=== PATIENT | female | born 1965 | race Caucasian/White ===

== ENCOUNTER 2020-08-15 00:47 | Day surgery (SDC) | payer OTHER, SELFPAY ==
[2020-08-03 09:54] VITALS: BMI 21.4
[2020-08-15] MEDS: LACTATED RINGERS 1,000 ML 150 ML IV CONT (06:18)
[2020-08-15 06:25] VITALS: BP 130/87; PULSE 72; RESP 18; TEMP 36.1; O2SAT 100
--- NOTE | 2020-08-15 07:10 | WPDANESEPPF ---
Anes - Initial Pre Proc Eval Procedure: Operation Date: 08/15/20 07:30 Proposed Procedures p Screening Colonoscopy - Wilfrid Swain MD Date/Time: 08/15/20 07:10 Surgeon: Wilfrid Swain MD Pre Op Diagnosis: neoplasm screening, fam hx colon CA Patient Data Age: 55 Gender: F Height: 1.75 m Weight: 64.2 kg Last Vital Signs Temp 97 F L 08/15/20 06:25 Pulse 72 08/15/20 06:25 Resp 18 08/15/20 06:25 BP 130/87 08/15/20 06:25 Pulse Ox 100 08/15/20 06:25 Allergies Allergy/AdvReac Type Severity Reaction Status Date / Time No Known Allergies Allergy Unverified 08/15/20 06:24 Home Medications Medication Instructions Recorded Confirmed Type irbesartan 150 mg PO DAILY 08/03/20 08/03/20 History Patient hx anesthesia problems: none Family hx anesthesia problems: none [facility] Past Medical History Medical History (Updated 08/15/20 @ 07:08 by Robb Barton MD) Hypertension Social History Social History Smoking status: Never smoker Alcohol intake: current Substance use: never Substance use type: does not use Living arrangements: with family Spiritual care concerns: No Anes - Eval Final PreProcedure Day of Procedure 08/15/20 07:10 Patient weight: normal Heart: regular rate and rhythm Lungs: clear to auscultation Airway: Mallampati scale class II Neurological: alert and oriented Last oral intake: >/= 8 hours ASA classification: II Emergent: no Anesthetic plan: proceed Anesthesia type and monitoring: general GIVS and standard monitoring Informed Consent: The patient's anesthetic plan and its attendant risks and benefits were discussed with the patient/family/POA. Questions were solicited and answers provided to the satisfaction of the patient/family/POA.
--- NOTE | 2020-08-15 07:33 | PM.HPGS ---
History of Present Illness History of Present Illness Consent: Risks, benefits, and alternatives have been discussed and questions answered. Patient agrees to proceed with procedure. Chief complaint: neoplasm screening, fam hx colon CA Narrative: Madiha Templeton is a 55 year old female here for colonoscopy, last one about 8-9 years ago, brother had colon cancer. Review of Systems Constitutional: Constitutional: Denies headache(s) and Denies weakness Eyes: Eyes: Denies blurry vision ENT: Reports Normal hearing present, Denies headache(s) and Denies neck pain Cardiovascular: Cardiovascular: Denies chest pain and Denies dyspnea Respiratory: Respiratory: Denies dyspnea Gastrointestinal: Gastrointestinal: Reports no additional gastrointestinal complaints Genitourinary: Genitourinary: Denies dysuria Musculoskeletal: Musculoskeletal: Denies neck pain Integumentary/Breasts: Skin/Breast: Denies dry skin Neurologic: Reports Normal hearing present, Denies headache(s) and Denies weakness Psychiatric: Psychiatric: Denies anxiety Endocrine: Endocrine: Denies change in body appearance Hematologic/Lymphatic: Hematologic/Lymphatic: Denies easy bleeding Allergic/Immunologic: Allergic/Immunologic: Denies urticaria PMFSH Past Medical History Medical History (Updated 08/15/20 @ 07:33 by Wilfrid Swain MD) Family history of colon cancer Hypertension Social History Social History Smoking status: Never smoker Alcohol intake: current Substance use: never Substance use type: does not use Living arrangements: with family Spiritual care concerns: No Meds Home Medications and Allergies Home Medications Medication Instructions Recorded Confirmed Type irbesartan 150 mg PO DAILY 08/03/20 08/03/20 History Allergies Allergy/AdvReac Type Severity Reaction Status Date / Time No Known Allergies Allergy Unverified 08/15/20 06:24 Vital Signs Vital Signs - 24 hr 08/15/20 06:25 Temperature 97 F L Pulse Rate 72 Respiratory Rate 18 Blood Pressure 130/87 Pulse Oximetry 100 Exam Const: General: comfortable and no acute distress HENMT: General nose exam: Normal nares present Eyes: General: appearance normal, both eyes and all related structures Neck: Neck: no JVD Resp: Auscultation: clear to auscultation bilaterally Cardio: Rate: regular rate Rhythm: regular rhythm GI: Inspection: non-distended GI Palp: Yes Soft to palpation Skin: General skin exam: normal color Neuro: General: gait normal Speech: normal speech Extrem: General: normal to inspection Psych: Mental Status: mental status grossly normal Assessment and Plan Assessment and plan (1) Family history of colon cancer: Code(s): Z80.0 - Family history of malignant neoplasm of digestive organs Status: Acute Assessment and Plan: colonoscopy
[2020-08-15 07:55] VITALS: BP 99/65; PULSE 61; O2SAT 100
[2020-08-15 08:05] VITALS: BP 93/67; PULSE 59; O2SAT 100
[2020-08-15 08:15] VITALS: BP 124/82; PULSE 51; RESP 15; O2SAT 100
== END 2020-08-15 08:25 | disposition home or self-care (01) ==
PROVIDERS: PCP Emergency Medicine; Visit Provider Internal Medicine Gastroenterology
PROC: 0DJD8ZZ Inspection of Lower Intestinal Tract, Via Natural or Artificial Opening Endoscopic (ICD-10-PCS; CPT 45378; principal; 2020-08-15 07:30)
DX: Z12.11 Encounter for screening for malignant neoplasm of colon (principal); K64.8 Other hemorrhoids; Z80.0 Family history of malignant neoplasm of digestive organs; I10 Essential (primary) hypertension
CPT/HCPCS: 45378; J2704; J7120

== ENCOUNTER 2023-12-16 06:51 | Outpatient (CLI) | payer OTHER, SELFPAY ==
--- NOTE | ~2023-12-16 | MR_ITS ---
MRI of the right foot CLINICAL HISTORY: Pain TECHNIQUE: Sagittal T1-weighted and STIR images, axial proton-density and proton-density fat-sat imag es, and coronal T1-weighted and proton-density fat-sat images were performed. FINDINGS: Bone marrow signals are unremarkable. No bone marrow edema, fracture, or osteomyelitis. The re are minimal scattered degenerative changes of the interphalangeal joints of the toes and the first MTP joint. Small first MTP joint effusion is present. Probable minimal intermetatarsal bursitis at the first and second interspaces. No neuroma evident. Fl exor and extensor tendons are intact. No soft tissue mass or other fluid collection identified. There does plantar fascia intact. IMPRESSION: Probable minimal intermetatarsal bursitis at the first and second interspaces. Minimal degenerative changes of the toes, as above, with small first MTP joint effusion. Reviewed, dictated and finalized at [facility].
== END 2023-12-16 06:52 | disposition home or self-care (01) ==
PROVIDERS: PCP Podiatrist Foot & Ankle Surgery; Visit Provider Podiatrist Foot & Ankle Surgery
DX: G57.61 Lesion of plantar nerve, right lower limb (principal); M79.671 Pain in right foot; M66.371 Spontaneous rupture of flexor tendons, right ankle and foot
CPT/HCPCS: 73718

== ENCOUNTER 2023-12-24 10:12 | Outpatient (CLI) | payer OTHER, SELFPAY ==
--- NOTE | ~2023-12-24 | US_ITS ---
Pelvic ultrasound. Clinical History: Postmenopausal bleeding Technique: Realtime transvaginal scanning of the pelvis was performed. Color flow Doppler and Doppler spectral analysis were performed. Findings: The uterus is anteverted. The endometrial stripe has a thickness of 4 mm. No focal mass is identified. The right ovary measures 1.7 x 1.4 x 1.4 cm. No significant right ovarian or adnexal mass is seen. The left ovary measures 2.2 x 1.5 x 2.2 cm. No significant left ovarian or adnexal mass is seen. There is no evidence of free fluid in the cul de sac. Impression: No significant abnormality seen. No abnormal endometrial thickening. Reviewed, dictated and finalized at [facility]. SME Impression: No significant abnormality seen. No abnormal endometrial thickening.
== END 2023-12-24 10:13 | disposition home or self-care (01) ==
LOC: MICIMG 10:13
PROVIDERS: PCP Nurse Practitioner Women's Health; Visit Provider Nurse Practitioner Women's Health
DX: N95.0 Postmenopausal bleeding (principal)
CPT/HCPCS: 76830